=== PATIENT | male | born 1980 | race Caucasian/White ===

== ENCOUNTER 2022-03-21 13:13 | Emergency (ER) | payer OTHER ==
[~2022-03-21] VITALS: Ht 180.3 cm; Wt 108.9 kg
[2022-03-21] MEDS ORDERED: ACETAMINOPHEN 325 MG TAB PO ONE (14:00)
[2022-03-21] MEDS ORDERED: IBUPROFEN 600 MG TAB PO ONE (14:00)
[2022-03-21] MEDS ORDERED: METHOCARBAMOL750 MG PO (15:51)
[2022-03-21] MEDS ORDERED: IBUPROFEN600 MG PO (15:51)
== END 2022-03-21 16:40 | disposition home or self-care (01) ==
LOC: ER 13:18
DX: S10.83XA Contusion of other specified part of neck, initial encounter (principal); S40.012A Contusion of left shoulder, initial encounter; V43.52XA Car driver injured in collision with other type car in traffic accident, initial encounter; Y92.488 Other paved roadways as the place of occurrence of the external cause
CPT/HCPCS: 71045; 72050; 99283